=== PATIENT | female | born 1995 | race Caucasian/White ===

== ENCOUNTER 2024-01-15 20:07 | Emergency (ER) | payer MEDICAID ==
[~2024-01-15] VITALS: Ht 165.1 cm; Wt 100.0 kg
[2024-01-15 21:37] VITALS: BP 0/0; PULSE 0; RESP 0
== END 2024-01-16 03:17 ==
LOC: EMS 20:09
DX: I46.9 Cardiac arrest, cause unspecified (principal); Z79.899 Other long term (current) drug therapy
CPT/HCPCS: 92950; 99285; Z7502